=== PATIENT | male | born 1935 | race Caucasian/White ===

== ENCOUNTER 2019-05-18 10:45 | Inpatient (IN) | payer OTHER, BC ==
--- NOTE | 2019-05-18 11:02 | PDOC ---
History of Present Illness - General Chief Complaint: CVA/TIA Stated Complaint: RIGHT LEG WEAKNESS Time Seen by Provider: 05/18/19 11:01 - History of Present Illness Initial Comments: 05/18/19 11:28 Chief complaint: Weakness History of present illness: Alert and coherent, describes right-sided weakness of the arm and leg, clumsiness of the right arm since last night at approximately 5:30. This occurred after a fall on a relatives patio. He describes suddenly listing to the right and falling to the floor, without any dizziness or other prodromal symptoms, and without loss of consciousness. He slumped over a chair and table, and broke the fall. He did not injure his head or neck, or sustain any other injuries from the fall. He was helped up by his son, but had difficulty ambulating due to leg weakness. His reports that there was no confusion but his speech was mildly slurred. 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 His Coumadin dose was recently adjusted downward due to an elevated INR. He forgot to take his Coumadin last night, but has not missed any other doses. He takes it once a day in the evening , but took an extra dose this morning due to missing his prior dose last evening. Recently took a plane flight, approximately 2 weeks ago, from [place] to [facility], has been sightseeing since then, riding in a car for considerable periods of time. He was scheduled to fly back to [place] today but canceled history of due to his current symptoms. Review of systems: Denies headache, chest pain, shortness of breath, abdominal pain, nausea, vomiting, diarrhea, diaphoresis, decrease, blurred, or double vision, hematemesis, melena, bloody stool. Admits mild dizziness which persists , described as a feeling of vertigo, and chronic BPH with urinary frequency and hesitancy. The urinary symptoms are unchanged Past medical history: Elevated cholesterol, was maintained on statins for many years, however discontinued by his doctor for several years. Chronic DVT as noted above, with possible increased swelling of his left leg since his plane flight. BPH. No prior known coronary artery disease, DC, TIA, CVA, or peripheral arterial disease. Social history: Denies tobacco alcohol or nonprescription drugs. 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 with stable home and family. Ambulatory and without prior disability Family history: Father with [place] in his early 50s, brother with elevated cholesterol but no known coronary disease, sister with frequent "fainting episodes" but without specific etiology. Physical exam: Alert and oriented well-developed well-nourished no acute distress cheerful and cooperative Afebrile, vital signs normal. Neuro: C2 to 12 are intact. No lower facial droop could be discerned. However, speech is mildly slurred, though coherent. This is corroborated by his , who also notices less articulate vocalization. Strength appears to be slightly decreased in the left arm and leg, but this is by no means dramatic. He still maintains fairly good strength. No demonstrable sensory deficits. Cerebellar function intact. Gait was not assessed, but indicates that he is "dragging his right leg" Head atraumatic. No sign of head injury PERRLA 4 mm, fundi benign with sharp disc margins and good central venous pulsations, visual amaya intact to confrontation, EOMs full without diplopia. ENT clear Neck supple without bruit mass or nodes. No point tenderness or deformity of the cervical spine. Full range of motion without pain Clear to P&A. Full breath sounds bilaterally. No chest wall or rib cage tenderness or deformity CV S1 and S2 distant without murmur rub or gallop pulses full and symmetric no JVD or edema no bruits regular Abdomen nondistended, bowel sounds normal, soft without mass tenderness organomegaly Extremities: Swelling and edema is present in the left calf and thigh, presumably due to chronic DVT. There is no warmth or erythema suggestive of acute inflammation. Pulses are full. Impression: Probable acute CVA, hemorrhagic or embolic from right leg DVT, onset of symptoms 5:30 PM last night, greater than 12 hours. On warfarin, INR could possibly be high or low due to recent dosage change. Fall was most likely from acute weakness of the right leg, no obvious injuries from the fall. Plan: CT, MRI if negative. EKG and enzymes, CBC and chemistries, monitor and observed. Further medical therapy depending on results. Neurological consultation. Past History - Past Medical History Allergies/Adverse Reactions: Allergies Allergy/AdvReac Type Severity Reaction Status Date / Time No Known Allergies Allergy Verified 05/18/19 10:48 Home Medications: Ambulatory Orders Tamsulosin HCl [Flomax] 0.4 mg PO DAILY 05/18/19 Warfarin Sodium [Coumadin] 0 mg PO ASDIR 05/18/19 COPD: No Hypercholesterolemia: Yes Other medical history: DVT LEFT LEG - Psycho Social/Smoking Cessation Hx Smoking History: Never smoked Hx Alcohol Use: No Drug/Substance Use Hx: No *Physical Exam - Vital Signs Last Vital Signs Temp Pulse Resp BP Pulse Ox 97.9 F 89 18 149/88 96 05/18/19 10:48 05/18/19 10:48 05/18/19 10:48 05/18/19 10:48 05/18/19 10:48 Critical Care Time/MDM Note - Medical Decision Making Note: 05/18/19 12:05 EKG shows normal sinus rhythm 90 per minute. Normal axes and intervals. There is slight ST segment flattening in lead 1, and inverted T-wave in aVL. Compared to an old EKG obtained from his primary physician in [place], the ST flattening is new and the T-wave inversion is more pronounced. Otherwise there are no changes. Laboratories show an INR of 3.05. Troponin is 0.05. Remainder of labs without significant abnormalities. CT shows no evidence of acute bleed, or acute infarct. MRI to be obtained. 05/18/19 15:28 MRI reveals acute nonhemorrhagic stroke. Dr. Hahn from neurology was contacted. Recommended continuing warfarin and he will see the patient in consultation Admitted to hospitalist service, Stephanie Fuentes was informed of the case, and Dr. Hernandez will be the admitting physician. Onset of symptoms was 5:30 PM last night, therefore thrombolytic not indicated at this time. Patient symptoms are stable. He maintains good strength on his right side, but coordination seems to be the major issue. There is also mild slurring of speech , though the patient is completely coherent and intelligible. Discharge - Discharge Information Problems reviewed: Yes Clinical Impression/Diagnosis: Cerebrovascular accident (CVA) Qualifiers: CVA mechanism: occlusion Precerebral and cerebral artery: unspecified cerebral artery Qualified Code(s): I63.50 - Cerebral infarction due to unspecified occlusion or stenosis of unspecified cerebral artery - Admission Yes - Follow up/Referral - Patient Discharge Instructions - Post Discharge Activity
[2019-05-18 11:26] LABS: BASO % 0.5 % (0-2.0); EOS % 1.1 % (0-4.5); HEMATOCRIT 43.7 % (35.4-49); HEMOGLOBIN 14.5 GM/dl (11.7-16.9); LYMPH % 25.4 % (8-40); MCH 32.1 pg (25.7-33.7); MCHC 33.2 g/dl (32.0-35.9); MEAN CELL VOLUME 96.5 fl (80-96); MONO % 7.4 % (3.8-10.2); NEUT % 65.6 % (42.8-82.8); PLATELET COUNT 211 K/MM3 (134-434); RBC 4.53 M/mm3 (4.00-5.60); RDW 13.9 % (11.9-15.9)
[2019-05-18 11:31] LABS: INR 3.05 (0.82-1.09); PROTHROMBIN TIME (PATIENT) 33.4 SEC (10.2-13.0)
[2019-05-18 11:34] LABS: BILIRUBIN,TOTAL 0.9 mg/dl (0.2-1); CALCIUM 9.1 mg/dl (8.5-10); CREATININE 1.1 mg/dl (0.55-1.3); TOT PROT 6.5 g/dl (6.4-8.2)
[2019-05-18 12:04] LABS: AMORP URATES 2+ /hpf (NONE SEEN)
--- NOTE | 2019-05-18 12:19 | EKG ---
Test Reason : Blood Pressure : / mmHG Vent. Rate : 090 BPM Atrial Rate : 090 BPM P-R Int : 190 ms QRS Dur : 104 ms QT Int : 360 ms P-R-T Axes : 069 027 084 degrees QTc Int : 440 ms NORMAL SINUS RHYTHM NORMAL ECG NO PREVIOUS ECGS AVAILABLE Confirmed by LEEROY CASE, MIKE ([id number]) on 05/18/2019 12:18:50 PM Referred By: APOLLO CHAMBERS Confirmed By:MIKE UMAÑA MD
[2019-05-18 17:21] VITALS: BMI 28.5
--- NOTE | 2019-05-18 19:44 | HP ---
CHIEF COMPLAINT: Right-sided weakess PCP: Dr. Sin Valdez, [place], [place] [phone] HISTORY OF PRESENT ILLNESS: 83 year-old male with a PMH significant for HLD, 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 Presented to ED for evaluation of right-sided weakness and inability to ambulate without falling over. Patient is from [place], [place] and is in [place] visiting family. He was at his brother's house yesterday afternoon. He describes suddenly listing to the right and falling to the floor, without any dizziness or other prodromal symptoms, and without loss of consciousness. He slumped over a chair and table, and broke the fall. He did not injure his head or neck, or sustain any other injuries from the fall. He was helped up by his son, but had difficulty ambulating due to right leg weakness. His reports that there was no confusion but his speech was mildly slurred. 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 His Coumadin dose was recently adjusted downward due to an elevated INR. Recently took a plane flight, approximately 2 weeks ago, from [place] to [facility], has been sightseeing since then, riding in a car for considerable periods of time. He was scheduled to fly back to [place] today but canceled history of due to his current symptoms. Review of systems: Denies headache, chest pain, shortness of breath, abdominal pain, nausea, vomiting, diarrhea, diaphoresis, decrease, blurred, or double vision, hematemesis, melena , bloody stool. Admits mild dizziness which persists, described as a feeling of vertigo, and chronic BPH with urinary frequency and hesitancy. 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[place]; lives in [place], Smoking: no Alcohol: no Drugs: no Family history: Father with KS in his early 50s, brother with elevated cholesterol but no known coronary disease, sister with frequent "fainting episodes" but without specific etiology Allergies No Known Allergies Allergy (Verified 05/18/19 10:48) HOME MEDICATIONS: Home Medications Medication Instructions Recorded Tamsulosin HCl [Flomax] 0.4 mg PO DAILY 05/18/19 Warfarin Sodium [Coumadin] 0 mg PO ASDIR 05/18/19 REVIEW OF SYSTEMS CONSTITUTIONAL: Absent: fever, chills, diaphoresis, generalized weakness, malaise, loss of appetite, weight change HEENT: Absent: rhinorrhea, nasal congestion, throat pain, throat swelling, difficulty swallowing, mouth swelling, ear pain, eye pain, visual changes CARDIOVASCULAR: Absent: chest pain, syncope, palpitations, irregular heart rate, lightheadedness , peripheral edema RESPIRATORY: Absent: cough, shortness of breath, dyspnea with exertion, orthopnea, wheezing, stridor, hemoptysis GASTROINTESTINAL: Absent: abdominal pain, abdominal distension, nausea, vomiting, diarrhea, constipation, melena, hematochezia GENITOURINARY: Absent: dysuria, frequency, urgency, hesitancy, hematuria, flank pain, genital pain MUSCULOSKELETAL: Absent: myalgia, arthralgia, joint swelling, back pain, neck pain SKIN: Absent: rash, itching, pallor HEMATOLOGIC/IMMUNOLOGIC: Absent: easy bleeding, easy bruising, lymphadenopathy, frequent infections ENDOCRINE: Absent: unexplained weight gain, unexplained weight loss, heat intolerance, cold intolerance NEUROLOGIC: right-sided weakness, gait instability Absent: headache, focal weakness or paresthesias, dizziness, unsteady gait, seizure, mental status changes, bladder or bowel incontinence PSYCHIATRIC: Absent: anxiety, depression, suicidal or homicidal ideation, hallucinations. PHYSICAL EXAMINATION Vital Signs - 24 hr 05/18/19 05/18/19 05/18/19 10:48 12:06 13:12 Temperature 97.9 F Pulse Rate 89 Pulse Rate [ 82 77 Apical] Respiratory 18 17 17 Rate Blood Pressure 149/88 Blood Pressure 142/86 140/81 [Right Arm] O2 Sat by Pulse 96 99 98 Oximetry (%) 05/18/19 05/18/19 05/18/19 15:26 16:12 17:01 Temperature 98.4 F Pulse Rate 80 Pulse Rate [ 82 82 Apical] Respiratory 18 17 17 Rate Blood Pressure 124/51 L Blood Pressure 148/93 121/75 [Right Arm] O2 Sat by Pulse 98 98 98 Oximetry (%) GENERAL: The patient is awake, alert, and fully oriented, in no acute distress. HEAD: Normal with no signs of trauma. EYES: PERRL, extraocular movements intact, sclera anicteric, conjunctiva clear. LUNGS: Breath sounds equal, clear to auscultation bilaterally, no wheezes, no crackles, no accessory muscle use. HEART: Regular rate and rhythm, S1, S2 ABDOMEN: Soft, nontender, nondistended EXTREMITIES: 2+ pulses, warm, well-perfused, no edema. NEUROLOGICAL: Right pronator drift, mild slurring of words PSYCH: Normal mood, normal affect. SKIN: Warm, dry, normal turgor, no rashes or lesions noted. Laboratory Results - last 24 hr 05/18/19 05/18/19 05/18/19 11:07 11:07 11:07 WBC 6.0 RBC 4.53 Hgb 14.5 Hct 43.7 MCV 96.5 H MCH 32.1 MCHC 33.2 RDW 13.9 Plt Count 211 MPV 7.0 L Absolute Neuts (auto) 4.0 Neutrophils % 65.6 Lymphocytes % 25.4 Monocytes % 7.4 Eosinophils % 1.1 Basophils % 0.5 PT with INR INR Sodium 137 Potassium 4.0 Chloride 105 Carbon Dioxide 24 Anion Gap 8 BUN 17.0 Creatinine 1.1 Est GFR (CKD-EPI)AfAm 70.57 Est GFR (CKD-EPI)NonAf 60.89 Random Glucose 177 H Calcium 9.1 Total Bilirubin 0.9 AST 27 ALT 22 Alkaline Phosphatase 50 Creatine Kinase 62 Troponin I 0.05 Total Protein 6.5 Albumin 4.0 Urine Color Urine Appearance Urine pH Urine Protein Urine Glucose (UA) Urine Ketones Urine Blood Urine Nitrite Urine Bilirubin Urine Urobilinogen Ur Leukocyte Esterase Urine RBC Urine WBC Amorphous Urates Urine Bacteria 05/18/19 05/18/19 11:07 11:33 WBC RBC Hgb Hct MCV MCH MCHC RDW Plt Count MPV Absolute Neuts (auto) Neutrophils % Lymphocytes % Monocytes % Eosinophils % Basophils % PT with INR 33.4 H INR 3.05 H Sodium Potassium Chloride Carbon Dioxide Anion Gap BUN Creatinine Est GFR (CKD-EPI)AfAm Est GFR (CKD-EPI)NonAf Random Glucose Calcium Total Bilirubin AST ALT Alkaline Phosphatase Creatine Kinase Troponin I Total Protein Albumin Urine Color Yellow Urine Appearance Slightly Urine pH 6.5 Urine Protein Negative Urine Glucose (UA) Negative Urine Ketones Negative Urine Blood Trace-intact Urine Nitrite Negative Urine Bilirubin Negative Urine Urobilinogen 0.2 Ur Leukocyte Esterase 1+ Urine RBC 2-5 Urine WBC 5-10 Amorphous Urates 2+ Urine Bacteria Moderate ASSESSMENT/PLAN: 83 year-old male with a PMH significant for HLD, 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 Admitted for acute CVA. Acute CVA --MRI brain: acute nonhemorrhagic stroke --start ASA, statin --US carotids --Echo --neuro consult Chronic LLE DVT --INR therapeutic, continue current dosing coumadin BPH --continue Tamsulosin Visit type - Emergency Visit Emergency Visit: Yes ED Registration Date: 05/18/19 Care time: The patient presented to the Emergency Department on the above date and was hospitalized for further evaluation of their emergent condition. - New Patient This patient is new to me today: Yes Date on this admission: 05/23/19 - Critical Care Critical Care patient: No
[2019-05-18] MEDS ORDERED: ASPIRIN 81 MG CHEWABLE TABLETS PO ONE (20:03)
[2019-05-18] MEDS: ATORVASTATIN CA 40 MG TABLET (FP) PO SCH (21:08)
[2019-05-18] MEDS ORDERED: ASPIRIN 81 MG CHEWABLE TABLETS ONE (21:09)
[2019-05-18] MEDS ORDERED: CEFTRIAXONE 1 GM in DEXTROSE 5%-WATER - 50 ML IVPB SCH (22:33)
[2019-05-19 07:42] LABS: BASO % 0.6 % (0-2.0); EOS % 2.6 % (0-4.5); HEMATOCRIT 43.2 % (35.4-49); HEMOGLOBIN 14.6 GM/dl (11.7-16.9); LYMPH % 36.9 % (8-40); MCH 32.5 pg (25.7-33.7); MCHC 33.9 g/dl (32.0-35.9); MEAN CELL VOLUME 95.9 fl (80-96); MONO % 9.5 % (3.8-10.2); NEUT % 50.4 % (42.8-82.8); PLATELET COUNT 208 K/MM3 (134-434); RBC 4.51 M/mm3 (4.00-5.60); RDW 13.9 % (11.9-15.9); WHITE BLOOD COUNT 5.5 K/mm3 (4.0-10.8)
[2019-05-19 07:58] LABS: ALBUMIN 3.9 g/dl (3.4-5.0); CALCIUM 8.9 mg/dl (8.5-10); CREATININE 1.1 mg/dl (0.55-1.3); TOT PROT 6.8 g/dl (6.4-8.2)
[2019-05-19 08:03] LABS: MAGNESIUM 2.2 mg/dL (1.8-2.4)
[2019-05-19] MEDS: TAMSULOSIN HCL 0.4 MG CAP PO SCH (08:30)
[2019-05-19] MEDS: ASPIRIN 81 MG CHEWABLE TABLETS PO SCH (09:46)
--- NOTE | 2019-05-19 14:44 | ECHO ---
Name: DARELL CHÁVEZ Exam:Adult Echocardiogram Study Date: 05/19/2019 09:47 AM Age: 83 yrs Reason For Study: r/o cva/tia/stroke Height: 71 in Weight: 205 lb BSA: 2.1 m2 MMode/2D Measurements & Calculations IVSd: 1.2 cm Ao root diam: 3.3 cm LVIDd: 3.5 cm LA dimension: 3.8 cm LVIDs: 2.5 cm LVPWd: 1.3 cm LVPWs: 1.6 cm EDV(Teich): 51.0 ml ESV(Teich): 23.1 ml LVOT diam: 2.1 cm Doppler Measurements & Calculations MV E max saundra: 75.6 cm/sec MV A max saundra: 106.8 cm/sec MV dec slope: 356.5 cm/sec2 MV E/A: 0.71 Ao V2 max: 114.1 cm/sec LV V1 max P.6 mmHg Ao max P.2 mmHg LV V1 mean P.3 mmHg Ao V2 mean: 82.9 cm/sec LV V1 max: 107.0 cm/sec Ao mean P.2 mmHg LV V1 mean: 67.2 cm/sec Ao V2 VTI: 25.0 cm LV V1 VTI: 22.1 cm KY(I,D): 3.0 cm2 KY(V,D): 3.2 cm2 SV(LVOT): 76.1 ml PA V2 max: 115.1 cm/sec PA max P.3 mmHg Procedure A complete two-dimensional transthoracic echocardiogram was performed (2D, M-mode, Doppler and color flow Doppler). Left Ventricle The left ventricular size, thickness and function are normal. The left ventricular ejection fraction is normal. Ejection Fraction = 60-65%. The left ventricular wall motion is normal. Right Ventricle The right ventricle is normal in size and function. Atria Normal left and right atrial size and function. Mitral Valve There is no mitral regurgitation noted. Tricuspid Valve There is trace tricuspid regurgitation. There was insufficient TR detected to calculate RV systolic p ressure. Aortic Valve No hemodynamically significant valvular aortic stenosis. No aortic regurgitation is present. Pulmonic Valve There is no pulmonic valvular regurgitation. Great Vessels The aortic root is normal size. Pericardium/Pleura There is no pericardial effusion. Interpretation Summary The left ventricular size, thickness and function are normal The right ventricle is normal in size and function. There is trace tricuspid regurgitation. MD Yassine Singleton 05/19/2019 02:44 PM
[2019-05-19 16:04] LABS: INR 2.68 (0.82-1.09); PROTHROMBIN TIME (PATIENT) 29.4 SEC (10.2-13.0)
--- NOTE | 2019-05-19 16:10 | PN ---
Physical Exam: SUBJECTIVE: Patient seen and examined OBJECTIVE: Vital Signs Period Temp Pulse Resp BP Sys/Dunlap Pulse Ox Last 24 Hr 98.0 F-98.4 F 72-82 17-18 119-139/51-79 94-98 GENERAL: The patient is awake, alert, and fully oriented, in no acute distress. HEAD: Normal with no signs of trauma. EYES: PERRL, extraocular movements intact, sclera anicteric, conjunctiva clear. LUNGS: Breath sounds equal, clear to auscultation bilaterally, no wheezes, no crackles, no accessory muscle use. HEART: Regular rate and rhythm, S1, S2 ABDOMEN: Soft, nontender, nondistended EXTREMITIES: 2+ pulses, warm, well-perfused, no edema. NEUROLOGICAL: Mild slurring of speech PSYCH: Normal mood, normal affect. SKIN: Warm, dry, normal turgor, no rashes or lesions noted. Laboratory Results - last 24 hr 05/18/19 05/18/19 05/18/19 21:15 21:15 22:25 WBC RBC Hgb Hct MCV MCH MCHC RDW Plt Count MPV Absolute Neuts (auto) Neutrophils % Lymphocytes % Monocytes % Eosinophils % Basophils % PTT (Actin FS) 47.7 H Sodium Potassium Chloride Carbon Dioxide Anion Gap BUN Creatinine Est GFR (CKD-EPI)AfAm Est GFR (CKD-EPI)NonAf Random Glucose Calcium Magnesium Total Bilirubin AST ALT Alkaline Phosphatase Creatine Kinase 56 Troponin I 0.05 Total Protein Albumin Triglycerides Cholesterol Total LDL Cholesterol HDL Cholesterol Stool Occult Blood 05/19/19 05/19/19 05/19/19 07:30 07:30 07:30 WBC 5.5 RBC 4.51 Hgb 14.6 Hct 43.2 MCV 95.9 MCH 32.5 MCHC 33.9 RDW 13.9 Plt Count 208 MPV 7.0 L Absolute Neuts (auto) 2.9 Neutrophils % 50.4 D Lymphocytes % 36.9 D Monocytes % 9.5 Eosinophils % 2.6 D Basophils % 0.6 PTT (Actin FS) 47.9 H Sodium 138 Potassium 4.0 Chloride 106 Carbon Dioxide 25 Anion Gap 7 L BUN 16.0 Creatinine 1.1 Est GFR (CKD-EPI)AfAm 70.57 Est GFR (CKD-EPI)NonAf 60.89 Random Glucose 103 Calcium 8.9 Magnesium Total Bilirubin 1.0 AST 24 ALT 22 Alkaline Phosphatase 49 Creatine Kinase Troponin I Total Protein 6.8 Albumin 3.9 Triglycerides Cholesterol Total LDL Cholesterol HDL Cholesterol Stool Occult Blood 05/19/19 05/19/19 07:30 14:16 WBC RBC Hgb Hct MCV MCH MCHC RDW Plt Count MPV Absolute Neuts (auto) Neutrophils % Lymphocytes % Monocytes % Eosinophils % Basophils % PTT (Actin FS) Sodium Potassium Chloride Carbon Dioxide Anion Gap BUN Creatinine Est GFR (CKD-EPI)AfAm Est GFR (CKD-EPI)NonAf Random Glucose Calcium Magnesium 2.2 Total Bilirubin AST ALT Alkaline Phosphatase Creatine Kinase Troponin I Total Protein Albumin Triglycerides 317 H Cholesterol 261 H Total LDL Cholesterol 161 H HDL Cholesterol 37 L Stool Occult Blood Negative Active Medications Generic Name Dose Route Start Last Admin Trade Name Freq PRN Reason Stop Dose Admin Aspirin 81 mg 05/19/19 10:00 05/19/19 09:46 Asa - PO 81 mg DAILY JACINDA Administration Atorvastatin Calcium 40 mg 05/18/19 22:00 05/18/19 21:08 Lipitor - PO 40 mg HS JACINDA Administration Ceftriaxone Sodium 50 mls @ 100 mls/hr 05/19/19 22:00 Ceftriaxone 1 Gm-D5w Bag IVPB DAILY@2200 [facility] Protocol Tamsulosin HCl 0.4 mg 05/19/19 08:30 05/19/19 08:30 Flomax - PO 0.4 mg DAILY@0830 [facility] Administration Warfarin Sodium 10 mg 05/19/19 18:00 Coumadin - PO DAILY@1800 [facility] ASSESSMENT/PLAN: 83 year-old male with a PMH significant for HLD, 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 Admitted for acute CVA. Acute CVA --MRI brain: acute nonhemorrhagic stroke --per neuro, stop ASA, continue statin and coumadin --US carotids: no significant stenosis --Echo: normal LV, normal RV, trace TR --US carotids: no significant stenosis --neuro consult Chronic LLE DVT --US LLE: DVT left superfical femoral vein --INR therapeutic, continue current dosing coumadin BPH --continue Tamsulosin Visit type - Emergency Visit Emergency Visit: Yes ED Registration Date: 05/18/19 Care time: The patient presented to the Emergency Department on the above date and was hospitalized for further evaluation of their emergent condition. - New Patient This patient is new to me today: No - Critical Care Critical Care patient: No
[2019-05-19] MEDS ORDERED: WARFARIN NA 10 MG TABLET (FP) PO SCH (18:00)
--- NOTE | 2019-05-19 18:07 | CON.NEURO ---
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 Presented to ED for evaluation of right-sided weakness and inability to ambulate without falling over on 05/18/19. Patient is from [place], [place] and is in [place] visiting family. He was at his brother's house yesterday afternoon. He describes suddenly listing to the right and falling to the floor, without any dizziness or other prodromal symptoms, and without loss of consciousness. He slumped over a chair and table, and broke the fall. He did not injure his head or neck, or sustain any other injuries from the fall. He was helped up by his son, but had difficulty ambulating due to right leg weakness. His reports that there was no confusion but his speech was mildly slurred. 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 His Coumadin dose was recently adjusted downward due to an elevated INR. INR TX on admission. LDL : 161 , UA (-) MRI BRAIN IMPRESSION. There is evidence of abnormal restricted diffusion in the left thalamus measuring approximately 6.2 mm x 3.2 mm with corresponding low signal intensity on ADC consistent with acute nonhemorrhagic acute lacunar infarct. Doppler : IMPRESSION: Mild atherosclerotic disease with no evidence of hemodynamically significant stenoses. ECHO -report reviewed. - Alcohol/Substance Use Hx Alcohol Use: No - Smoking History Smoking history: Never smoked Home Medications - Allergies Allergies/Adverse Reactions: Allergies Allergy/AdvReac Type Severity Reaction Status Date / Time No Known Allergies Allergy Verified 05/18/19 10:48 - Home Medications Home Medications: Ambulatory Orders Tamsulosin HCl [Flomax] 0.4 mg PO DAILY 05/18/19 Warfarin Sodium [Coumadin] 0 mg PO ASDIR 05/18/19 Physical Exam-Neuro Vital Signs: Vital Signs Temperature 98.1 F 05/19/19 06:00 Pulse Rate 72 05/19/19 06:00 Respiratory Rate 18 05/19/19 06:00 Blood Pressure 139/79 05/19/19 06:00 O2 Sat by Pulse Oximetry (%) 94 L 05/19/19 08:25 Labs: CBC, BMP 05/19/19 07:30 05/19/19 07:30 INR, PTT INR 2.68 (0.82-1.09) H 05/19/19 15:09 - Neuro Exam Level Of Consciousness: Yes: Alert (see NIH SCALE , 2 ) NIH Stroke Scale - Last Known Well Date/Time & Onset Date Last Known Well: 05/17/19 Time Last Known Well: 12:00 - Initial Evaluation Level of consciousness: Alert Ask patient the month and their age: Answers both correctly Ask patient to open & close eyes; make fist and let go: Obeys both correctly Best gaze (horizontal eye movement): Normal Visual field testing: No visual field loss Facial paresis (Show teeth/raise eyebrows/close eyes tight): Normal symmetrical movement Motor Function: Left Arm: Normal Motor Function: Right Arm: Drift Motor Function: Left Leg: Normal (extends leg 30 degrees for 5 seconds without drift) Motor Function: Right Leg: Normal (extends leg 30 degrees for 5 seconds without drift) Limb Ataxia: No ataxia Sensory(Use pinprick test arms,legs,trunk,face/side to side): Normal Best language (Describe picture, name items, read sentences): No Aphasia Dysarthria (read several words): Mild to moderate slurring of words Extinction and Inattention: No abnormality - Total Score NIH Stroke Scale Score: 2 Problem List - Problems (1) Hemiparesis of right dominant side Code(s): G81.91 - HEMIPLEGIA, UNSPECIFIED AFFECTING RIGHT DOMINANT SIDE (2) Cerebrovascular accident (CVA) Code(s): I63.9 - CEREBRAL INFARCTION, UNSPECIFIED Qualifiers: CVA mechanism: occlusion Precerebral and cerebral artery: unspecified cerebral artery Qualified Code(s): I63.50 - Cerebral infarction due to unspecified occlusion or stenosis of unspecified cerebral artery Assessment/Plan 83 year-old male with a PMH significant for HLD, 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 Presented to ED for evaluation of right-sided weakness and inability to ambulate without falling over on 05/18/19. Patient is from [place], [place] and is in [place] family. He was at his brother's house yesterday afternoon. He describes suddenly listing to the right and falling to the floor, without any dizziness or other prodromal symptoms, and without loss of consciousness. He slumped over a chair and table, and broke the fall. He did not injure his head or neck, or sustain any other injuries from the fall. He was helped up by his son, but had difficulty ambulating due to right leg weakness. His reports that there was no confusion but his speech was mildly slurred. 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 His Coumadin dose was recently adjusted downward due to an elevated INR. INR TX on admission. LDL : 161 , UA (-) MRI BRAIN IMPRESSION. There is evidence of abnormal restricted diffusion in the left thalamus measuring approximately 6.2 mm x 3.2 mm with corresponding low signal intensity on ADC consistent with acute nonhemorrhagic acute lacunar infarct. Doppler : IMPRESSION: Mild atherosclerotic disease with no evidence of hemodynamically significant stenoses. ECHO -report reviewed. AP : small L thalamic lacune -- likely small vessel secondary to hypertensive/ elevated cholesterol mild dysarthria /RUE drift on exam, count Coumadin , DC ASA, cont statin can get outpt PT/ST can be Dc in AM and safe to travel thereafter DR COLLAZO
[2019-05-19] MEDS: ATORVASTATIN CA 40 MG TABLET (FP) PO SCH (21:30)
[2019-05-19] MEDS ORDERED: CEFTRIAXONE 1 G/50 ML PREMIX 50 ML IVPB SCH (22:00)
[2019-05-20] MEDS: TAMSULOSIN HCL 0.4 MG CAP PO SCH (09:51)
[2019-05-20] MEDS: ASPIRIN 81 MG CHEWABLE TABLETS PO SCH (09:51)
--- NOTE | 2019-05-20 12:53 | DS ---
Physical Exam: SUBJECTIVE: Patient seen and examined OBJECTIVE: Vital Signs Period Temp Pulse Resp BP Sys/Dunlap Pulse Ox Last 24 Hr 97.6 F-98.0 F 77-89 16-18 124-144/64-72 96-97 PHYSICAL EXAM GENERAL: The patient is awake, alert, and fully oriented, in no acute distress. HEAD: Normal with no signs of trauma. EYES: PERRL, extraocular movements intact, sclera anicteric, conjunctiva clear. LUNGS: Breath sounds equal, clear to auscultation bilaterally, no wheezes, no crackles, no accessory muscle use. HEART: Regular rate and rhythm, S1, S2 ABDOMEN: Soft, nontender, nondistended EXTREMITIES: 2+ pulses, warm, well-perfused, no edema. NEUROLOGICAL: Right pronator drift, mild slurring of words PSYCH: Normal mood, normal affect. SKIN: Warm, dry, normal turgor, no rashes or lesions noted. 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 Presented to ED for evaluation of right-sided weakness. Patient is from [place], [place] and is in [place] visiting family. He was at his brother's house yesterday afternoon. He describes suddenly listing to the right and falling to the floor, without any dizziness or other prodromal symptoms, and without loss of consciousness. He did not injure his head or neck, or sustain any other injuries from the fall. He was helped up by his son, but had difficulty ambulating due to right leg weakness. His reports that there was no confusion but his speech was mildly slurred. Recently took a plane flight , approximately 2 weeks ago, from [place] to [facility], has been sightseeing since then, riding in a car for considerable periods of time. He was scheduled to fly back to [place] today but canceled history of due to his current symptoms. Review of systems: Denies headache, chest pain, shortness of breath, abdominal pain, nausea, vomiting, diarrhea, diaphoresis, decrease, blurred, or double vision, hematemesis, melena, bloody stool. Admits mild dizziness which persists, described as a feeling of vertigo, and chronic BPH with urinary frequency and hesitancy. The urinary symptoms are unchanged ER course (1) MRI brain: acute nonhemorrhagic stroke (2) INR 3.05 (3) Troponin 0.05 Subsequent hospital course Patient was continued on coumadin and started on Lipitor 40mg daily. ASA was started but discontinued at the direction of neurology, Dr. Hahn. Echocardiagram showed a normal LV, normal RV, and trace TR. Duplex showed a positive DVT in the left superficial femoral vein, which is chronic. Carotid ultrasound showed mild atherosclerotic disease with no evidence of hemodynamically significant stenosis. Patient had two physical therapy sessions at the end of which he walked 600 feet using a walker with a steady gait, transferred from supine to sitting 8/10 times independently, and walked up and down 10 steps with one handrail. Urine culture negative; advised patient does not need antibiotics. Minutes to complete discharge: 35 Discharge Summary Problems reviewed: Yes Reason For Visit: CEREBOVASCULAR ACCIDENT CVA Current Active Problems Cerebrovascular accident (CVA) (Acute) Hemiparesis of right dominant side (Acute) Condition: Improved - Instructions Referrals: Sin Valdez Dr. [Other] Disposition: HOME - Home Medications Comprehensive Discharge Medication List: Ambulatory Orders Tamsulosin HCl [Flomax] 0.4 mg PO DAILY 05/18/19 Warfarin Sodium [Coumadin] 0 mg PO ASDIR 05/18/19 Amoxicillin/Potassium Clav [Augmentin 875-125 Tablet] 1 each PO BID #20 tablet 05/20/19 Atorvastatin Ca [Lipitor] 40 mg PO HS #30 tablet 05/20/19 Prescription Drug Monitoring Program (I-STOP) results: I-STOP not reviewed This patient is new to me today: No Emergency Visit: Yes ED Registration Date: 05/18/19 Care time: The patient presented to the Emergency Department on the above date and was hospitalized for further evaluation of their emergent condition. Critical Care patient: No - Discharge Referral Referred to [facility] Med [facility].C[facility] No
[2019-05-20 14:25] VITALS: BP 116/63; PULSE 99; TEMP 97.9
== END 2019-05-20 15:42 | disposition home or self-care (01) | DRG 65 ==
LOC: FER 10:45 → FM/S 15:22
PROVIDERS: ADMIT Internal Medicine; ATTEND Nurse Practitioner Acute Care
DX: I63.9 Cerebral infarction, unspecified (principal); I82.5Z2 Chronic embolism and thrombosis of unspecified deep veins of left distal lower extremity; G81.91 Hemiplegia, unspecified affecting right dominant side; E78.5 Hyperlipidemia, unspecified; N40.0 Benign prostatic hyperplasia without lower urinary tract symptoms; Z79.01 Long term (current) use of anticoagulants; R29.702 NIHSS score 2
CPT/HCPCS: 36415; 70450-TC; 70551-TC; 71045-TC-FY; 80053; 80061; 81003; 81015; 82272; 82550; 83735; 84484; 85025; 85610; 85730; 87077; 87086; 93005; 93306-TC; 93880-TC; 93970-TC; 97116-GP; 97162-GP; 99284-25